=== PATIENT | female | born 1990 | race Caucasian/White ===

== ENCOUNTER 2016-11-25 03:24 | Outpatient (CLI) | payer OTHER | END 2016-11-25 03:25 | disposition critical access hospital (66) | LOC: EMS 03:24 | PROVIDERS: ATTEND Surgery | DX: M25.561 Pain in right knee (principal) | CPT/HCPCS: A0425; A0429 ==

== ENCOUNTER 2016-11-25 03:40 | Emergency (ER) | payer OTHER ==
[2016-11-25] MEDS ORDERED: oxyCOD/ACETAMIN 5 MG/325 MG TABLET PO ONE (04:40)
--- NOTE | 2016-11-25 06:01 | ED Physician Documentation ---
History of Present Illness - Stated complaint Stated Complaint: R KNEE PAIN - Additonal information Additional information: [facility] Departure - Departure Disposition: 01 Home, Self Care Discharge Date/Time: 11/25/16 06:16
--- NOTE | 2016-11-26 13:07 | XRAY Preliminary Report ---
Exam: XR Knee 3 View RT IMPRESSION: Normal knee radiography. [facility] SITE ID: [id number]
--- NOTE | 2016-11-26 13:08 | XRAY Report ---
EXAM: RIGHT KNEE RADIOGRAPHY EXAM DATE: 11/25/2016 04:15 AM. CLINICAL HISTORY: Pain COMPARISON: None. TECHNIQUE: 5 views. FINDINGS: Bones: Normal. No fractures or bone lesions. Joints: Normal. No effusion. No subluxations. Soft Tissues: Normal. No soft tissue swelling. IMPRESSION: Normal knee radiography. [facility] Referring Provider Line: [phone] SITE ID: [id number]
== END 2016-11-25 06:16 | disposition home or self-care (01) ==
LOC: ED 03:40
DX: M25.561 Pain in right knee (principal); V48.4XXA Person boarding or alighting a car injured in noncollision transport accident, initial encounter; F17.200 Nicotine dependence, unspecified, uncomplicated
CPT/HCPCS: 73562; 99283; A9270; 99282

== ENCOUNTER 2017-01-17 08:12 | Emergency (ER) | payer OTHER ==
[2017-01-17 08:18] VITALS: BP 126/79
--- NOTE | 2017-01-17 08:33 | ED Physician Documentation ---
History of Present Illness - Stated complaint Stated Complaint: FEMALE - Chief complaint Chief Complaint: Abd Pain - History obtained from History obtained from: Patient (Pt states that earlier this week she started to have discomfort with urination and lower abdominal pain . She states that she has been on Motrin daily for a torn right ACL so she didn't think much of it. then she states that this AM she woke and had blood in her urine. No back pain , no rashes, no vaginal bleeding, no nausea or vomiting, No hx of STD's.) Review of Systems Constitutional: denies: Fever, Chills, Fatigue Cardiac: denies: Chest pain / pressure, Palpitations Respiratory: denies: Dyspnea, Cough, Wheezing GI: reports: Abdominal Pain (bilateral lower abd). denies: Nausea, Vomiting, Constipation, Diarrhea, Bloody / black stool : reports: Dysuria, Hematuria. denies: Unable to Void, Incontinent, Discharge , Vaginal bleeding, Now EGA Skin: denies: Rash, Lesions Musculoskeletal: reports: Joint pain (right knee). denies: Back pain Neurologic: denies: Generalized weakness, Headache PD PAST MEDICAL HISTORY - Past Medical History Cardiovascular: None Respiratory: None Endocrine/Autoimmune: None GI: None : None HEENT: Other Psych: None Musculoskeletal: Other Derm: None - Present Medications Home Medications: Ambulatory Orders Medication Instructions Recorded Confirmed Ibuprofen [Motrin] 800 mg PO Q8H PRN 01/13/17 01/17/17 Multivitamin [Multivitamins] 1 each PO DAILY 01/13/17 01/17/17 Nitrofurantoin Monohyd/M-Cryst 100 mg PO BID #10 capsule 01/17/17 [Macrobid 100 mg Capsule] - Allergies Allergies/Adverse Reactions: Allergies Allergy/AdvReac Type Severity Reaction Status Date / Time No Known Drug Allergies Allergy Verified 01/17/17 08:18 PD ED PE NORMAL - General General: Alert and oriented X 3 - HEENT HEENT: Atraumatic, Moist mucous membranes - Cardiac Cardiac: No murmur, No gallop, No rub. No: RRR (tachycardic but regular) - Respiratory Respiratory: No respiratory distress - Abdomen Abdomen: Soft, Non tender (No lower abd rebound or guarding. ), Non distended - Back Back: No CVA TTP - Derm Derm: Normal color, No rash - Extremities Extremities: No deformity - Neuro Neuro: Alert and oriented X 3 - Psych Psych: Normal mood, Normal affect Results - Vitals Vitals: Vital Signs - 24 hr 01/17/17 08:15 Temperature 36.4 C L Heart Rate 114 H Respiratory 16 Rate Blood Pressure 126/79 O2 Saturation 98 Oxygen O2 Source Room air - Labs Labs: Laboratory Tests 01/17/17 01/17/17 08:30 08:30 Urine Color BROWN Urine Clarity CLOUDY Urine pH 6.0 Ur Specific [place] 1.025 1.025 Urine Protein TRACE Urine Glucose (UA) NEGATIVE Urine Ketones NEGATIVE Urine Occult Blood LARGE H Urine Nitrite NEGATIVE Urine Bilirubin NEGATIVE Urine Urobilinogen 0.2 (NORMAL) Ur Leukocyte Esterase MODERATE H Urine RBC TNTC H Urine WBC 11-25 H Ur Squamous Epith Cells FEW Squamous Urine Bacteria Moderate H Ur Microscopic Review INDICATED Urine Culture Comments INDICATED Urine HCG, Qual NEGATIVE PD MEDICAL DECISION MAKING - ED course Complexity details: d/w patient ED course: Pt with bilateral lower abd tenderness and painful urination and now with blood in her urine. States that she has had a UTI in the past and this feels similar. is tachycardic but does not appear to be septic. PE is not C/W pyelo. UA and sx C/W UTI. will treat with ABX. pt given return precautions. Departure - Departure Disposition: 01 Home, Self Care Clinical Impression: Urinary tract infection Qualifiers: Urinary tract infection type: acute cystitis Hematuria presence: with hematuria Qualified Code(s): N30.01 - Acute cystitis with hematuria Instructions: ED UTI Cystitis Female Follow-Up: JOSE RAUL MCGRAW [Primary Care Provider] - Prescriptions: Nitrofurantoin Monohyd/M-Cryst [Macrobid 100 mg Capsule] 100 mg PO BID #10 capsule Comments: Return to the ER for any new or worsening symptoms.
[2017-01-17 08:42] LABS: BILIRUBIN,URINE NEGATIVE (NEGATIVE)
[2017-01-17 08:52] LABS: HCG UR QUAL NEGATIVE; UA w/ MICROSCOPIC CHARGE YES; UR CULTURE IF IND INDICATED
== END 2017-01-17 09:05 | disposition home or self-care (01) ==
LOC: ED 08:12
DX: N30.01 Acute cystitis with hematuria (principal)
CPT/HCPCS: 81001; 81003; 81025; 87086; 99283

== ENCOUNTER 2017-02-27 06:01 | Day surgery (SDC) | payer OTHER ==
[2017-02-27] MEDS ORDERED: ceFAZolin 2 GM/50 ML 2 GM/50 ML BAG IV ONE (06:33)
[2017-02-27] MEDS ORDERED: LACTATED RINGERS 1,000 ML IV ONE (06:33)
[2017-02-27] MEDS ORDERED: ACETAMINOPHEN 1,000 MG/100 ML 100 ML IV ONE (06:34)
[2017-02-27 07:05] LABS: HCG UR QUAL NEGATIVE
[2017-02-27 07:33] LABS: BILIRUBIN,URINE NEGATIVE (NEGATIVE); GLUCOSE, URINE (UA) NEGATIVE (NEGATIVE); KETONES,URINE (UA) NEGATIVE (NEGATIVE); LEUKOCYTE ESTERASE, URINE NEGATIVE (NEGATIVE); NITRITE,URINE NEGATIVE (NEGATIVE); OCCULT BLOOD,URINE NEGATIVE (NEGATIVE); PROTEIN,URINE NEGATIVE (NEGATIVE); UROBILINOGEN,URINE 0.2 (NORMAL) E.U./dL (NORMAL)
[2017-02-27 07:34] LABS: CLARITY,URINE CLEAR (CLEAR)
[2017-02-27] MEDS ORDERED: LIDOCAINE-MPF 2% 5 ML VIAL IM ONE (07:43)
[2017-02-27] MEDS ORDERED: ONDANSETRON 4 MG/2 ML VIAL IVP ONE (07:43)
[2017-02-27] MEDS ORDERED: fentaNYL 100 MCG/2 ML VIAL IVP ONE (07:43)
[2017-02-27] MEDS ORDERED: DEXAMETHASONE 4 MG/ML VIAL IVP ONE (07:43)
[2017-02-27] MEDS ORDERED: MIDAZOLAM 2 MG/2 ML VIAL IVP ONE (07:43)
[2017-02-27] MEDS ORDERED: PROPOFOL 200 MG/20 ML VIAL IVP ONE (07:43)
[2017-02-27] MEDS ORDERED: EPINEPHrine 1 MG/ML AMP IR ONE (08:14)
[2017-02-27] MEDS ORDERED: BACITRACIN 50,000 UNIT VIAL TOP ONE (08:24)
[2017-02-27] MEDS: HYDROmorphone 1 MG/ML SYRINGE ONE ×4 (10:47→11:23)
[2017-02-27] MEDS ORDERED: oxyCODONE 5 MG TABLET ONE (11:54)
[2017-02-27 12:43] VITALS: BP 124/65
--- NOTE | 2017-03-03 10:02 | XRAY Report ---
DATE OF SERVICE: 02/27/2017 INTRAOPERATIVE RIGHT KNEE: 02/27/2017 CLINICAL INDICATION: Check implant. FINDINGS: Intraoperative frontal views of the right knee were obtained. Table hardware does obscure segments of anatomy. A retention button is noted at the lateral femoral condyle. IMPRESSION: Intraoperative imaging of the right knee. Two seconds of fluoroscopy time was provided to Dr. Kay; two images obtained. TD: 02/27/2017 19:41
--- NOTE | 2017-03-03 11:29 | XRAY Report ---
DATE OF SERVICE: 02/27/2017 TWO VIEW PORTABLE RIGHT KNEE: 02/27/2017 CLINICAL INDICATION: Postop. FINDINGS: Frontal and lateral views of the right knee demonstrate postoperative changes of right ACL replacement. Subcutaneous gas is noted. Alignment appears normal. IMPRESSION: Expected postoperative appearance of right ACL replacement. TD: 02/27/2017 20:56
--- NOTE | 2017-03-03 13:46 | OPERATIVE REPORT ---
DATE OF SERVICE: 02/27/2017 [facility] PREOPERATIVE DIAGNOSIS: Right knee anterior cruciate ligament tear. POSTOPERATIVE DIAGNOSES 1. Right knee anterior cruciate ligament tear. 2. Right knee lateral meniscus tear. 3. Right knee lateral tibial plateau chondromalacia. OPERATION PERFORMED 1. Right knee arthroscopically-assisted anterior cruciate ligament reconstruction with hybrid graft. 2. Right knee arthroscopic lateral meniscus debridement. 3. Right knee arthroscopic lateral tibial condyle chondroplasty. PRIMARY SURGEON: Rossi Kay MD CIVIL ENGINEERING SPECIALIST SURGEON: Farzad Cuellar MD ANESTHESIA PROVIDER: Shahnaz Angelo CRNA CIRCULATING NURSES 1. Leilani Berg RN. 2. Gavi Donahue. SCRUB TECHS 1. Marcie Anders CST. 2. Ravi Wallace RN. ANESTHESIA: General via LMA. IV FLUIDS: 1600 mL lactated Ringer's. ESTIMATED BLOOD LOSS: 15 mL. ANTIBIOTICS: Ancef 2 g IV. TOURNIQUET: None. SPECIMENS: None. IMPLANTS 1. Arthrex RT TightRope. 2. Arthrex 10 mm GraftBolt. 3. Tibialis anterior allograft. COMPLICATIONS: None. FINDINGS 1. Anterior cruciate ligament tear 2. Lateral meniscus tear 3. 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 Grade II lateral femoral condyle chondromalacia 5. Grade II medial tibial plateau chondromalacia 6. Grade II medial femoral condyle chondromalacia INDICATIONS: This is a 26-year-old female who was playing volleyball in October 2016 when she sustained a right knee injury. Her primary care obtained an MRI that showed an ACL tear. She continued to have symptomatic instability and pain despite physical therapy, activity modification, nonsteroidal anti-inflammatories and bracing. The risks, benefits, indications, and expectations of surgery to include, but not limited to infection, bleeding, damage to neurovascular structures, need for additional surgery, persistent worsening pain, stiffness, recurrent instability, iatrogenic chondromalacia, iatrogenic fracture, deep vein thrombosis, pulmonary embolism, loss of limb and/or loss of life were discussed with the patient. All questions were answered, the patient elected to proceed with surgery, and informed consent was obtained. DESCRIPTION OF PROCEDURE: The patient was met in the preoperative holding area on the morning of surgery where it was confirmed we had the correct patient, planned to do the correct procedure, and had the correct extremity, which was the right lower extremity identified. Prior to the patient receiving any medications the operative extremity was initialed by the surgeon. The patient then under light sedation had a femoral nerve block performed by Anesthesia. The patient was then brought back to the operating room in stable condition. She was placed supine on the operating room table, and all bony prominences were well padded. Sequential compression device were placed on the nonoperative leg. General anesthesia was induced without complication. An examination of the right lower extremity showed a 2B Esa's and a positive anterior drawer. She had a negative posterior drawer, and her knee was stable to varus and valgus at both 0 and 30 degrees. The right lower extremity was then prepped and draped in usual sterile fashion. After a final draping, additional ChloraPrep was utilized on the operative site. We held a surgical timeout where we confirmed that we had the correct patient, planned to do the correct procedure on the correct extremity, which was right lower extremity identified. It was also confirmed that all necessary gear was in the room and confirmed sterile, and that the necessary implants were present, that the patient had received preoperative antibiotics, and that no members of the operative team had any concerns. I began by making a standard anterolateral portal by first sharply incising the skin with a #11 blade and then utilizing a trocar with blunt introducer to gain entry into the patellofemoral joint. I then inserted the camera and began my examination of the patellofemoral joint. There was significant synovitis in the anterior medial aspect of the joint; however, the remainder of the joint was without significant lesion. There was lateral overhang of the patella. I then continued into the lateral gutter which was without loose body. I then continued into the medial compartment where under direct visualization made a standard anteromedial portal by first localizing with an 18 gauge needle and then sharply incising the skin with an 11 blade and then introducing a blunt trocar to further establish the portal. I then inserted a sucker shaver and debrided some of the synovitic tissue and anterior fat pad for better visualization. I then inserted the SERFAS wand to obtain hemostasis. I then inserted the probe and continued my examination in the medial compartment. The medial compartment had fissures in the cartilage of the femoral condyle as well as a tibial plateau consistent with grade 2 chondromalacia. The meniscus was intact without lesion. I continued my examination to the notch, where the ACL was noted to be torn from the lateral wall and adhered to the PCL. PCL was intact. I then continued my examination to the lateral compartment, where a significant grade 3 chondromalacia and grade 4 chondromalacia of the tibial plateau as well as grade 2 of the lateral femoral condyle was noted. The lateral meniscus was noted to have a parrot beak tear near the root in the posterior horn. I inserted a sucker shaver and debrided the meniscus tear back to a stable rim. There was still a margin of the meniscus at the root, and the lateral meniscus did not demonstrate abnormal anterior mobility. I also debrided the cartilage from the lateral tibial plateau such that there were no loose flaps. I then turned my attention to harvesting the hamstring tendons. I made a sharp incision in the skin in line with the tibia, approximately 2 fingerbreadths below the joint line and 3 fingerbreadths medial to the tibial tubercle. After sharply incising the skin, I utilized electrocautery to obtain hemostasis through the subcuticular layer. I then identified the sartorius fascia and palpated the gracilis and semitendinosus tendons underneath this fascia. I then made an upside-down hockey stick incision, with the top of the incision parallel to the superior border of the gracilis and the long part of the incision parallel to the tibia just medial to the palpable ends of the tendons. The long part of the incision I made sharply down to the bone and the short end through the sartorius fascia. I then elevated the corner of this incision such that a plane was developed between the medial collateral ligament and the gracilis and semitendinosus tendons. After identifying the tendons, I then them from the sartorial fascia and tagged the sartorial fascia with an Ethibond suture. I then whipstitched the end of the gracilis with a #2 FiberWire and then repeated this with a #2 FiberWire on the semitendinosus. I then bluntly dissected with my finger about the tendons to free them from any adhesions or tissue bands. After confirming that the tendons were fully freed and had ample excursion, I then used a tendon stripper to harvest the tendons first with the gracilis and the semitendinosus. The tendons were then brought back to the back table and placed in bacitracin solution. The tendons were then debrided of any muscle or extra tissue utilizing a sousa elevator. The free end was then whipstitched utilizing a #2 FiberLoop. The 2 tendons were then doubled over and umbilical tape and measured to be 7.5 mm in diameter. Given that this was less than 8 mm in diameter, a decision was made to add allograft tissue to this, and a semitendinosus non-irradiated allograft was pulled from the freezer and thawed in the bacitracin solution. I then cut a strip of this and whipstitched both ends utilizing a #2 FiberLoop and added this to the hamstring autograft. I then placed this over the umbilical tape and measured the diameter of the graft to now be 9 mm. Decision was therefore made to drill 9 mm tibial and femoral tunnels. The graft was then placed under 20 pounds of tension using the GraftMaster. I then reinserted the camera into the knee and turned my attention to debriding the lateral wall of the notch of any remnant ACL, which was accomplished alternating between the sucker shaver and the SERFAS wand. The appropriate placement for the lateral tunnel was then identified just anterior to the posterior wall and just superior to the cartilage margin. This spot was marked utilizing the surface wand. I then inserted a femoral drill guide through the lateral portal while visualizing from the anteromedial portal and placed this at the planned site. I then utilized the guide bullet to mini the skin on the lateral aspect of the femur. I then made an incision sharply through the skin as well as the IT band and then passed the bullet down past the soft tissue onto the femur. I then utilized a 9 FlipCutter and drilled from outside-in on the femur while visualizing through the arthroscope. After flipping the FlipCutter and etching the lateral wall of the notch and confirming that the tunnel was appropriately placed. I then retrograde drilled 20 mm. I then flipped the FlipCutter and removed it from the knee. I then placed a FiberStick with #2 FiberWire through the femoral tunnel into the knee and then withdrew this out the anterolateral portal. I then turned my attention to drilling the tibial tunnel. I placed the tibial guide in through the anteromedial tibia incision visualizing through the anterolateral portal. After confirming appropriate placement of the guide, I then placed the bullet from the guide down onto the tibia through the previously made tibial incision. I then placed a guide pin through this and confirmed appropriate placement. I then drilled from outside in utilizing a 10 mm drill. I then inserted a sucker shaver and debrided the tissue around the tibial tunnel. I also inserted a rasp from outside in and rasped the edges of the tunnel to ensure there were no sharp edges. I then inserted a grasper and grabbed the part of the FiberWire that was coming out the lateral portal and brought that out the tibial tunnel, such that the FiberWire was passing through the femoral tunnel, intraarticularly, and out the tibial tunnel. I then removed the graft which had been on tension for 26 minutes and placed a TightRope on this. I then utilized the FiberWire that was going through the tunnels in the knee to pass the suture ends of the TightRope through the tibial tunnel, through the knee, and out the femoral tunnel. We then utilized these suture ends to draw the graft up into the knee while visualizing with the camera. After the preplaced mini indicating that the cortical button was just outside the lateral cortex of the femur I then flipped the button and pulled down, confirming that it had flipped and seated on the lateral femoral cortex. I then obtained AP and oblique fluoroscopy showing that the button was appropriately placed on the lateral cortex of the femur and that it was down on the bone. I then, while watching through the arthroscope, cinched the graft up into the femoral tunnel. Then while applying downward pressure on the graft cycled the knee 20 times. I then brought the knee up onto the table and placed a nitinol wire into the tibial tunnel while applying downward pressure on the graft. I then dilated over this nitinol wire starting an 8 mm dilator and dilating up to a 10 mm dilator. I then elected to place a 10 mm GraftBolt and first placed the sheath into the tunnel over the guidewire and then placed the GraftBolt screw. I then reinserted the camera into the knee, as well as a probe, and examined the ACL graft which was noted to be appropriately taut. I then brought the knee into full extension, and there was no impingement of the graft. All arthroscopic equipment was then removed from the knee. The wounds were thoroughly irrigated. The excess graft from the tibial tunnel was sharply cut at the level the tunnel with a #15 blade. The wounds were then thoroughly irrigated again. The sartorial fascia of the tibial incision was closed utilizing 0 Vicryl in a [id number] fashion. The subcuticular layer was closed utilizing a 2-0 Vicryl and the skin with a running 3-0 Monocryl. The portal incisions were closed utilizing buried 3-0 Monocryl, and the lateral femoral incision was closed utilizing 2-0 Vicryl in the subcuticular layer and a running 3-0 Monocryl in the skin. Mastisol and Steri-Strips were then placed over all wounds. The wounds were then dressed with Xeroform, plain gauze, and an abdominal pad. Webril and an Armando bandage was then placed over this. All sponge counts and needle counts were correct at the conclusion of the case. The patient was awakened from general anesthesia without complication and taken to the PACU in stable condition. POSTOPERATIVE PLAN: The patient will be weightbearing as tolerated on her right lower extremity and may range her knee as tolerated. I will see the patient back in 10-14 days for a wound check, at which time we will initiate physical therapy. TD: 02/27/2017 19:07 JENIFFER
--- NOTE | 2017-03-03 13:48 | OPERATIVE REPORT ---
DUPLICATE DOCUMENT - DELETE - JLL 03/03/2017 DATE OF SERVICE: 02/27/2017 Physician: Rossi Kay MD DATE OF SURGERY: 02/27/2017 [facility] PREOPERATIVE DIAGNOSIS: Right knee anterior cruciate ligament tear. POSTOPERATIVE DIAGNOSES 1. Right knee anterior cruciate ligament tear. 2. Right knee lateral meniscus tear. 3. Right knee lateral tibial plateau chondromalacia. OPERATION PERFORMED 1. Right knee arthroscopically-assisted anterior cruciate ligament reconstruction with hybrid graft. 2. Right knee arthroscopic lateral meniscus debridement. 3. Right knee arthroscopic lateral tibial condyle chondroplasty. PRIMARY SURGEON: Rossi Kay MD WEATHERIZATION DIRECTOR SURGEON: Farzad Cuellar MD ANESTHESIA PROVIDER: Shahnaz Angelo CRNA CIRCULATING NURSES 1. Leilani Berg RN. 2. Gavi Donahue. SCRUB TECHS 1. Marcie Anders CST. 2. Ravi Wallace RN. ANESTHESIA: General via LMA. IV FLUIDS: 1600 mL lactated Ringer's. ESTIMATED BLOOD LOSS: 15 mL. ANTIBIOTICS: Ancef 2 g IV. TOURNIQUET: None. SPECIMENS: None. IMPLANTS 1. Arthrex RT TightRope. 2. Arthrex 10 mm GraftBolt. 3. Tibialis anterior allograft. This is a 26-year-old female who was playing volleyball in October 2016 when she sustained a right knee injury. Her primary care obtained an MRI that showed an ACL tear. She continued to have symptomatic instability and pain despite physical therapy, activity modification, nonsteroidal anti-inflammatories and bracing. The risks, benefits, indications, and expectations of surgery to include, but not limited to infection, bleeding, damage to neurovascular structures, need for additional surgery, persistent worsening pain, stiffness, recurrent instability, iatrogenic chondromalacia, iatrogenic fracture, deep vein thrombosis, pulmonary embolism, loss of limb and/or loss of life were discussed with the patient. All questions were answered, the patient elected to proceed with surgery, and informed consent was obtained. DESCRIPTION OF PROCEDURE: The patient was met in the preoperative holding area on the morning of surgery where it was confirmed we had the correct patient, planned to do the correct procedure, and had the correct extremity, which was the right lower extremity identified. Prior to the patient receiving any medications the operative extremity was initialed by the surgeon. The patient then under light sedation had a femoral nerve block performed by Anesthesia. The patient was then brought back to the operating room in stable condition. She was placed supine on the operating room table, and all bony prominences were well padded. Sequential compression device were placed on the nonoperative leg. An examination of the right lower extremity showed a 2B Esa's and a positive anterior drawer. She had a negative posterior drawer, and her knee was stable to varus and valgus at both 0 and 30 degrees. The right lower extremity was then prepped and draped in usual sterile fashion. After a final draping, additional ChloraPrep was utilized on the operative site. We held a surgical timeout where we confirmed that we had the correct patient, planned to do the correct procedure on the correct extremity, which was right lower extremity identified. It was also confirmed that all necessary gear was in the room and confirmed sterile, and that the necessary implants were present, that the patient had received preoperative antibiotics, and that no members of the operative team had any concerns. I began by making a standard anterolateral portal by first sharply incising the skin with a #11 blade and then utilizing a blunt trocar to gain entry into the patellofemoral joint. I then inserted the camera and began my examination of the patellofemoral joint. There was significant synovitis in the anterior medial aspect of the joint; however, the remainder of the joint was without significant lesion. I then continued into the lateral gutter which was without loose body. I then continued into the medial compartment where under direct visualization made a standard anteromedial portal by first localizing with an 18 gauge needle and then sharply incising the skin with an 11 blade and then introducing a blunt trocar to further establish the portal. I then inserted a sucker shaver and debrided some of the synovitic tissue and anterior fat pad for better visualization. I then inserted the SERFAS wand for hemostasis. I then inserted the probe and continued my examination in the medial compartment. The medial compartment had fissures in the cartilage of the femoral condyle as well as a tibial plateau consistent with grade 2 chondromalacia. The meniscus was intact without lesion. I continued my examination to the notch, where the ACL was noted to be torn from the lateral wall and adhered to the PCL. PCL was intact. I then continued my examination to the lateral compartment, where a significant grade 3 chondromalacia and grade 4 chondromalacia of the tibial plateau as well as the lateral femoral condyle was noted. The lateral meniscus was noted to have a parrot beak tear near the other root in the posterior horn. I inserted a sucker shaver and debrided the meniscus tear back to a stable rim. There was still a margin of the meniscus, and the lateral meniscus did not demonstrate abnormal anterior mobility. I also debrided the cartilage from the lateral tibial plateau such that there were no loose flaps. I then turned my attention to harvesting the hamstring tendons. I made a sharp incision in the skin in line with the tibia, approximately 2 fingerbreadths below the joint line and 3 fingerbreadths medial to the tibial tubercle. After sharply incising the skin, I utilized electrocautery to obtain hemostasis through the subcuticular layer. I then identified the sartorius fascia and palpated the gracilis and semitendinosus tendons underneath this fascia. I then made an upside-down hockey stick incision, with the top of the incision parallel to the superior border of the gracilis and the long part of the incision parallel to the tibia just medial to the palpable ends of the tendons. The long part of the incision I made sharply down to the bone. I then elevated the corner of this incision such that a plane was developed between the medial collateral ligament and the gracilis and semitendinosus tendons. After identifying the tendons, I then them from the sartorial fascia and tagged the sartorial fascia with an Ethibond suture. I then whipstitched the end of the gracilis with a #2 FiberWire and then repeated this with a #2 FiberWire on the semitendinosus. I then bluntly dissected with my finger about the tendons to free them from any adhesions or tissue ridges. After confirming that the tendons were fully freed and had ample excursion, I then used a tendon stripper to harvest the tendons first with the gracilis and the semitendinosus. The tendons were then brought back to the back table and placed in bacitracin solution. The tendons were then debrided of any muscle or extra tissue utilizing a osusa elevator. The free end was then whipstitched utilizing a #2 FiberLoop. The 2 tendons were then doubled over and umbilical tape and measured to be 7.5 mm in diameter. Given that this was less than 8 mm in diameter, a decision was made to add allograft tissue to this, and a semitendinosus non-irradiated allograft was pulled from the freezer and thawed in the bacitracin solution. I then cut a strip of this and whipstitched both ends, utilizing a #2 FiberLoop and added this to the hamstring autograft. I then placed this over the umbilical tape and measured the diameter of the graft to now be 9 mm. Decision was therefore made to drill 9 mm tibial and femoral tunnels. I then reinserted the camera into the knee and turned my attention to debriding the lateral wall of the notch of any remnant ACL, which was completed, alternating between the sucker shaver and the SERFAS wand. The appropriate placement for the lateral tunnel was then identified just anterior to the posterior wall and just superior to the cartilage margin. This spot was marked utilizing the surface wand. I then inserted a femoral drill guide through the lateral portal while visualizing from the anteromedial portal and placed this at the planned site. I then utilized a bolt to mini the skin on the lateral aspect of the femur. I then made an incision sharply through the skin as well as the IT band and then passed the bullet down past the soft tissue. I then utilized a 9 FlipCutter and drilled from outside-in to the knee while visualizing through the arthroscope. After flipping the FlipCutter and etching the lateral wall of the notch and confirming that the tunnel was appropriately placed. I then retrograde drilled 20 mm. I then flipped the FlipCutter and removed it from the knee. We then placed a FiberStick with #2 FiberWire through the femoral tunnel into the knee and then withdrew this out the anterolateral portal. I then turned my attention to drilling the tibial tunnel. I placed the tibial guide in through the anteromedial portal while visualizing through the anterolateral portal. After confirming appropriate placement of the guide, we then placed the bolt from the guide down onto the tibia through the previously made tibial incision. We then placed a guide pin through this and confirmed appropriate placement. I then drilled from outside in utilizing a 10 mm drill. I then inserted a sucker shaver and debrided the tissue around the tibial tunnel. I also inserted a rasp from outside in and rasped the edges of the tunnel to ensure there were no sharp edges. I then inserted a grasper and grabbed the part of the FiberWire that was coming out the lateral portal and brought that out the tibial tunnel, such that the FiberWire was passing through the femoral tunnel, intraarticularly, and out the tibial tunnel. I then removed the graft which had been on tension for 26 minutes at 20 pounds of pressure and placed a TightRope on this. I then utilized the FiberWire that was going through the tunnels in the knee to pass the suture ends of the TightRope through the tibial tunnel, through the knee, and out the femoral tunnel. We then utilized these suture ends to draw the graft up into the knee while visualizing with the camera. After the preplaced mini indicating that the Endobutton was just outside the lateral cortex of the femur and had passed into the tunnel we then flipped the Endobutton and pulled down, confirming that it had flipped. We then obtained AP and oblique radiographs showing that the button was appropriately placed on the lateral cortex of the femur and that it was down on the bone. We then, while watching through the arthroscope, cinched the graft up into the femoral tunnel. Then while applying downward pressure on the graft cycled the knee 20 times. We then brought the knee up onto the table and placed a nitinol wire into the tibial tunnel hole while applying downward pressure on the graft. I then dilated over this nitinol wire starting an 8 mm dilator and dilating up to a 10 mm dilator. I then elected to place a 10 mm GraftBolt and first placed the sheath into the hole over the guidewire and then placed a #10 screw. I then reinserted the camera into the knee, as well as a probe, and examined the ACL graft which was noted to be appropriately taut. I then brought the knee into full extension, and there was no impingement of the graft. All arthroscopic equipment was then removed from the knee. The wounds were thoroughly irrigated. The excess graft from the tibial tunnel was sharply cut at the level the tunnel with a #15 blade. The wounds were then thoroughly irrigated again. The sartorial fascia of the tibial incision was closed utilizing 0 Vicryl in a [id number] fashion. The subcuticular layer was closed utilizing a 2-0 Vicryl and the skin with a running 3-0 Monocryl. The portal incisions were closed utilizing buried 3-0 Monocryl, and the lateral femoral incision was closed utilizing 2-0 Vicryl in the subcuticular layer and a running 3-0 Monocryl in the skin. Mastisol and Steri-Strips were then placed over all wounds. The wounds were then dressed with Xeroform, plain gauze, and an abdominal pad. Webril and an Armando bandage was then placed over this. All sponge counts and needle counts were correct at the conclusion of the case. The patient was awakened from general anesthesia and taken to the PACU in stable condition. POSTOPERATIVE PLAN: The patient will be weightbearing as tolerated on her right lower extremity, may range her knee as tolerated. I will see the patient back in 10-14 days for a wound check, at which time we will initiate physical therapy. TD: 02/27/2017 19:07 MTDD
== END 2017-02-27 06:02 | disposition home or self-care (01) ==
LOC: SDS 06:01
PROVIDERS: ATTEND Orthopaedic Surgery
PROC: 0SBC4ZZ Excision of Right Knee Joint, Percutaneous Endoscopic Approach (ICD-10-PCS; 2017-02-27)
PROC: 0MRN47Z Replacement of Right Knee Bursa and Ligament with Autologous Tissue Substitute, Percutaneous Endoscopic Approach (ICD-10-PCS; principal; 2017-02-27 07:30)
DX: S83.511A Sprain of anterior cruciate ligament of right knee, initial encounter (principal); S83.281A Other tear of lateral meniscus, current injury, right knee, initial encounter; M94.261 Chondromalacia, right knee; X58.XXXA Exposure to other specified factors, initial encounter; Y93.68 Activity, volleyball (beach) (court); F17.210 Nicotine dependence, cigarettes, uncomplicated
CPT/HCPCS: 29881; 29888; 73560; 81003; 81025; A9270; C1713; C1762; J0131; J0690; J1170; J7120